=== PATIENT | male | born 1975 | race Caucasian/White ===

== ENCOUNTER 2020-01-09 21:58 | Inpatient (IN) | payer BC ==
[~2020-01-09] VITALS: Ht 177.8 cm; Wt 133.8 kg
[2020-01-09 21:59] VITALS: BP 152/97
[2020-01-09 23:09] LABS: ABSOLUTE NEUTROPHILS 4.1 thou/uL (1.4-8.2); BASOPHILS 0.8 % (0.0-2.0); EOSINOPHILS 3.7 % (0.0-3.0); HEMATOCRIT 43.7 % (42.0-52.0); HEMOGLOBIN 14.5 gm/dL (14.0-18.0); LYMPHOCYTES 27.1 % (24.0-44.0); MCH 29.6 pg (26.0-34.0); MCHC 33.1 g/dL (28.0-37.0); MCV 89.4 fL (80.0-100.0); MONOCYTES 10.3 % (1.0-8.0); PLATELET COUNT 228 thou/uL (150-400); POLYS 58.1 % (36.0-66.0); RBC 4.89 mil/uL (4.50-6.00); RDW 13.5 % (10.5-14.5)
[2020-01-09 23:22] LABS: CALCIUM 9.5 mg/dL (8.5-10.1); CREATININE 1.1 mg/dL (0.7-1.3); POTASSIUM 3.7 mmol/L (3.5-5.1)
[2020-01-09 23:38] LABS: TROPONIN-I 1.73 ng/mL (<0.06)
[2020-01-10] VITALS (15 sets, daily range): BP systolic 104–151; BP diastolic 56–93
[2020-01-10 01:55] LABS: PROTIME 10.3 Seconds (9.3-11.4)
[2020-01-10] MEDS ORDERED: LEVO-T50 MCG PO (04:00)
[2020-01-10] MEDS ORDERED: SINGULAIR 10 MG10 M1 PO (04:01)
[2020-01-10] MEDS ORDERED: FENOFIBRATE150 MG PO (04:02)
[2020-01-10] MEDS ORDERED: COZAAR 25 MG TA25 M2 PO (04:02)
[2020-01-10] MEDS ORDERED: CLARITIN-D 241 EAC1 PO (04:02)
[2020-01-10] MEDS ORDERED: PRAVASTATIN SOD20 MG PO (04:03)
[2020-01-10] MEDS ORDERED: PROAIR HFA8.5 GM INH (04:04)
[2020-01-10] MEDS ORDERED: SYMBICORT160 MCG/4. INH (04:04)
[2020-01-10 08:10] LABS: CHOLESTEROL 180 mg/dL (<200); HDL CHOLESTEROL 31 mg/dL (>40); LDL CHOLESTEROL 91 mg/dL (<100); TC:HDL 5.8 Ratio (Not establshd); TRIGLYCERIDE 293 mg/dL (<150); VLDL 59 mg/dL (<40)
[2020-01-10 08:11] LABS: TROPONIN-I 5.35 ng/mL (<0.06)
--- NOTE | 2020-01-10 12:51 | 2DMMODE ---
[facility] [place] [address] 2 D/M-MODE ECHOCARDIOGRAM Name: JONATHAN GARCIA Room #: 208-P ADM IN M.R.#: [id number] Admission: 01/10/20 Attend Phys: Chris Angeles MD Discharge: Date of : 73 Report #: [id number] THIS REPORT FOR: cc: [facility] - Clinic physician unknown [facility] - Clinic physician unknown Oscar Orellana MD ~ APPROVED REPORT Study performed: 01/10/2020 10:35:32 EXAM: Comprehensive 2D, Doppler, and color-flow Echocardiogram Patient Location: Bedside Room #: 208 Status: on-call BSA: 2.41 HR: 82 bpm BP: 131/93 mmHg Rhythm: NSR Other Information Study Quality: Adequate Risk Factors: Cardiac Risk Factors: Tobacco, HTN, Hyperlipidemia Indications Non STEMI Dyspnea Chest Pain 2D Dimensions IVSd: 10.07 (7-11mm) LVOT Diam: 20.00 (18-24mm) LVDd: 52.40 mm PWd: 10.46 (7-11mm) Ascending Ao: 31.36 (22-36mm) LVDs: 41.96 (25-40mm) LV Single Plane 4CH: 46.77 % LV Single Plane 2CH: 38.30 % Biplane EF: 42.6 % Volumes Left Atrial Volume (Systole) Single Plane 4CH: 49.02 mL Single Plane 2CH: 58.57 mL LA ESV Index: 24.00 mL/m2 [facility] [address] [place] [address] 2 D/M-MODE ECHOCARDIOGRAM Name: JOSEAIDENYUKITIFFANIE MELTON Room #: 208-P ADM IN M.R.#: [id number] Admission: 01/10/20 Attend Phys: Chris Angeles MD Discharge: Date of : 73 Report #: [id number] Aortic Valve AoV Peak Mitchell.: 1.28 m/s AO Peak Gr.: 6.54 mmHg LVOT Max P.24 mmHg LVOT Max V: 1.03 m/s JEFRY Vmax: 2.55 cm2 Mitral Valve E/A Ratio: 1.9 MV Decel. Time: 188.73 ms MV E Max Mitchell.: 0.97 m/s MV A Mitchell.: 0.50 m/s MV PHT: 54.73 ms IVRT: 58.82 ms TDI E/Lateral E': 10.78 E/Medial E': 12.13 Medial E' Mitchell.: 0.08 m/s Lateral E' Mitchell.: 0.09 m/s Pulmonary Valve PV Peak Mitchell.: 0.94 m/s PV Peak Gr.: 3.53 mmHg Pulmonary Vein P Vein S: 0.73 m/s P Vein A: 0.23 m/s P Vein D: 0.51 m/s P Vein A Dur.: 103.8 msec P Vein S/D Ratio: 1.43 Left Ventricle The left ventricle is normal size. Mid to distal anteroseptal and apical hypokinesis. There is normal left ventricular wall thickness. Left ventricular systolic function is mild to moderately decreased. LVEF is 40-45%. Right Ventricle The right ventricle is normal size. The right ventricular systolic function is normal. Atria The left atrium size is normal. The right atrium size is normal. Aortic Valve The aortic valve is normal in structure. No aortic regurgitation is present. There is no aortic valvular stenosis. Mitral Valve [facility] [address] [place] [address] 2 D/M-MODE ECHOCARDIOGRAM Name: JONATHAN GARCIA Room #: 208-P ADM IN M.R.#: [id number] Admission: 01/10/20 Attend Phys: Chris Angeles MD Discharge: Date of : 73 Report #: [id number] The mitral valve is normal in structure. There is no mitral valve regurgitation noted. No evidence of mitral valve stenosis. Tricuspid Valve The tricuspid valve is normal in structure. There is no tricuspid valve regurgitation noted. Pulmonic Valve The pulmonary valve is normal in structure. There is no pulmonic valvular regurgitation. Great Vessels The aortic root is normal in size. The ascending aorta is normal in size. IVC is normal in size and collapses >50% with inspiration. Pericardium There is no pericardial effusion. <Conclusion> The left ventricle is normal size. There is normal left ventricular wall thickness. Left ventricular systolic function is mild to moderately decreased. LVEF is 40-45%. The right ventricle is normal size. The left atrium size is normal. The aortic valve is normal in structure. There is no mitral valve regurgitation noted. There is no tricuspid valve regurgitation noted. <ELECTRONICALLY SIGNED> By: Oscar Orellana MD 01/10/20 1250 1250 1250 Oscar Orellana MD /INF
--- NOTE | 2020-01-10 12:54 | EKG ---
[facility] [place] [address] ELECTROCARDIOGRAM REPORT Name: JONATHAN GARCIA Room #: 208-P ADM IN M.R.#: [id number] Admission: 01/10/20 Attend Phys: hCris Angeles MD Discharge: Date of : 73 Report #: [id number] THIS REPORT FOR: cc: [facility] - Clinic physician unknown [facility] - Clinic physician unknown Oscar Orellana MD ~ THIS REPORT FOR: //name// [facility] Test Date: 2020-01-10 Test Time: 07:46:27 Pat Name: JONATHAN GARCIA Department: Room: 208 Gender: M Permaculture Contractor: Soo DAN : 1975 Requested By: Tamika Nava Order Number: [id number] MD: Oscar Orellana Measurements Intervals [place] Rate: 79 P: 39 [place]: 164 QRS: 64 QRSD: 101 T: 88 QT: 369 QTc: 424 Interpretive Statements Sinus rhythm Anteroseptal infarct, old Nonspecific T abnormalities, lateral leads No previous ECG available for comparison Electronically Signed On 01-10-2020 12:53:43 TRACK SURFACING MACHINE OPERATOR by Oscar Orellana [email or web address] <ELECTRONICALLY SIGNED> By: Oscar Orellana MD 01/10/20 1253 5 5 Oscar Orellana MD /CAR
--- NOTE | 2020-01-10 12:54 | EKG ---
[facility] [place] [address] ELECTROCARDIOGRAM REPORT Name: JONATHAN GARCIA Room #: 208-P ADM IN M.R.#: [id number] Admission: 01/10/20 Attend Phys: Chris Angeles MD Discharge: Date of : 73 Report #: [id number] THIS REPORT FOR: cc: [facility] - Clinic physician unknown [facility] - Clinic physician unknown Oscar Orellana MD ~ THIS REPORT FOR: //name// [facility] ED Test Date: 2020-01-09 Test Time: 22:07:12 Pat Name: HUDSON GARCIA Department: Patient ID: [id number]- Room: Gender: M Manager Floor: BRENNEN : 1975 Requested By: Melissa Junior Order Number: [id number] MD: Oscar Orellana Measurements Intervals [place] Rate: 91 P: 22 [place]: 161 QRS: 64 QRSD: 102 T: -11 QT: 376 QTc: 463 Interpretive Statements Sinus rhythm Anterior infarct, old Borderline ST depression, diffuse leads No previous ECG available for comparison Electronically Signed On 01-10-2020 12:52:58 SUPERVISOR [employer]ODUCTS by Oscar Orellana [email or web address] <ELECTRONICALLY SIGNED> By: Oscar Orellana MD 01/10/20 1252 D: [id number] Oscar Orellana MD /CAR
--- NOTE | 2020-01-10 19:54 | NUR ---
RECEIVED PT'S CARE AROUND 0740; PT. A0X4; NO C/O PAIN; TROPONIN ELEVATED; CARDIOLOGY NOTIFIED; DURING AM ASSESSMENT NO C/O CP; REMAINED OF NPO; AROUND 0900 C/O SOME BACK PAIN; 12/22; DR. WIL KAYE; PT. GONE TO CARDIAC AROUND 1000; BACK AROUND NOON; R. SIDE C/D/I; NO HEMATOMA; EDUCATED ABOUT POST CARDIAC REST & PREVENTIONS; ST. UNDERSTANDING; THROUGH THE AFTERNOON NO HEMATOMA; SR ON THE MONITOR; ASSESSMENT CHARGED; FOLLOWING POC; PASSED ON REPORT;
--- NOTE | 2020-01-11 02:24 | NUR ---
ASSUMED CARE OF PT FROM DAY SHIFT, RIGHT GROIN SOFT AND FREE OF BLEEDING GOOD STRONG PULSE NOTED, DENIES CHEST PAIN , PT UP TO BATHROOM TOLERATED WELL. BOX LUNCH REQUEST AND GIVEN , TOLERATED WELL. FLUIDS COMPLETED AND SALINE LOCKED.CLINICAL LAB SPECIALIST SHOWS NSR. PT RESTED WELL THROUGHOUT HOURLY ROUNDS, WILL REORT CHANGS OR ABNORMAL FINDINGS.
[2020-01-11 04:24] LABS: HEMATOCRIT 40.5 % (42.0-52.0); HEMOGLOBIN 13.3 gm/dL (14.0-18.0); MCH 29.7 pg (26.0-34.0); MCHC 32.7 g/dL (28.0-37.0); MCV 90.7 fL (80.0-100.0); RBC 4.46 mil/uL (4.50-6.00); RDW 13.8 % (10.5-14.5)
[2020-01-11 04:46] LABS: ALBUMIN 3.3 g/dL (3.4-5.0); CALCIUM 8.3 mg/dL (8.5-10.1); CREATININE 0.8 mg/dL (0.7-1.3); POTASSIUM 3.8 mmol/L (3.5-5.1); TOTAL BILIRUBIN 0.4 mg/dL (<0.1-1.0); TOTAL PROTEIN 6.8 g/dL (6.4-8.2)
[2020-01-11 06:30] LABS: GLYCOHEMOGLOBIN (HGB A1C) 5.7 % (4.8-5.6)
[2020-01-11 08:05] VITALS: BP 131/84
--- NOTE | 2020-01-11 08:38 | HC ---
[facility] [place] [address] CONSULTATION Name: JONATHAN GARCIA Room #: 208-P ADM IN M.R.#: [id number] Admission: 01/10/20 Attend Phys: Chris Angeles MD Discharge: Date of : 73 Report #: [id number] THIS REPORT FOR: cc: [facility] - Clinic physician unknown [facility] - Clinic physician unknown Oscar Orellana MD ~ CC: [facility] unknown Chris Angeles DATE OF SERVICE: 01/10/2020 CARDIOLOGY CONSULTATION INDICATION: Chest pain. HISTORY OF PRESENT ILLNESS: This is a 44-year-old gentleman with a history of hypertension, hypercholesterolemia, tobacco use and strong family history for CAD, presenting with chest pain and shortness of breath. For the past few months, he has been having back pains, managed by a chiropractor. For the past week, he has noticed a development of shortness of breath with walking up a flight of stairs in his home. He denies any fever, chills or cough. Last night, after putting his kids to bed, he developed chest pain. It was associated with shortness of breath, but denies any diaphoresis. The whole episode lasted for 15 minutes. His initial troponin was minimally elevated, the peak is 5.35. A CT angio was negative for PE. He has remained stable on IV heparin. There is no history of PND or orthopnea. PAST MEDICAL HISTORY: Hypertension, hypercholesterolemia ALLERGIES: PENICILLIN. MEDICATIONS: At home include pravastatin, fenofibrate, and losartan. SOCIAL HISTORY: Uses chewing tobacco on a daily basis. FAMILY HISTORY: Father with a history of an [place]. REVIEW OF SYSTEMS: A full 10-point review of systems performed. Only the pertinent positives and negatives are described in the HPI. PHYSICAL EXAMINATION: VITAL SIGNS: Blood pressure is 130/70, heart rate is 90 beats per minute. GENERAL APPEARANCE: An overweight male, in no acute distress. HEENT: Normocephalic, atraumatic. Oral mucosa moist. NECK: Supple, no JVD. LUNGS: Clear to auscultation. [facility] [address] [place] [address] CONSULTATION Name: JOSEJONATHAN GERONIMO Room #: 208- ADM IN M.R.#: [id number] Admission: 01/10/20 Attend Phys: Chris Angeles MD Discharge: Date of : 73 Report #: [id number] CARDIAC: Regular rate and rhythm, S1, S2 positive. ABDOMEN: Soft, nontender. EXTREMITIES: No cyanosis, trace edema. NEUROLOGIC: Alert and oriented x 3. ECG on presentation reveals sinus rhythm with ST segment abnormalities in the inferolateral leads. T-wave in V2. LABORATORY VALUES: Peak troponin is 5.35. White count 7.0, hemoglobin 14.5, creatinine is 1.1. ASSESSMENT AND PLAN: 1. Non-ST elevation myocardial infarction. Given his recent symptoms and laboratory findings, I discussed with the patient the pros and cons of a cardiac catheterization. The patient and his voiced understanding, wishes to proceed. 2. Hypertension, continue with losartan, add a beta ricco. 3. Hypercholesterolemia, transitioned to Lipitor for high-dose statin therapy. 4. Tobacco use, complete cessation of all tobacco products has been highly recommended. <ELECTRONICALLY SIGNED> By: Oscar Orellana MD 01/11/20 0838 1049 1108 Oscar Orellana MD /nt
--- NOTE | 2020-01-11 10:03 | EKG ---
[facility] [place] [address] ELECTROCARDIOGRAM REPORT Name: JONATHAN GARCIA Room #: 208-P ADM IN M.R.#: [id number] Admission: 01/10/20 Attend Phys: Chris Angeles MD Discharge: Date of : 73 Report #: [id number] THIS REPORT FOR: cc: [facility] - Clinic physician unknown [facility] - Clinic physician unknown Oscar Orellana MD ~ THIS REPORT FOR: //name// [facility] Test Date: 2020-01-10 Test Time: 12:59:38 Pat Name: JONATHAN GARCIA Department: Room: 208 P Gender: M Recruitment Coordinator: Soo DAN : 1975 Requested By: Oscar Orellana Order Number: [id number] MD: Oscar Orellana Measurements Intervals [place] Rate: 78 P: 44 [place]: 167 QRS: 71 QRSD: 103 T: 103 QT: 364 QTc: 415 Interpretive Statements Sinus rhythm Anteroseptal infarct, old Nonspecific T abnormalities, lateral leads Compared to ECG 01/10/2020 07:46:27 No significant changes Electronically Signed On 01-11-2020 10:02:40 CONTINUOUS IMPROVEMENT COORDINATOR by Oscar Orellana [email or web address] <ELECTRONICALLY SIGNED> By: Oscar Orellana MD 01/11/20 1002 1259 1259 Oscar Orellana MD /EPI
--- NOTE | 2020-01-11 10:19 | CATHLAB ---
[facility] [place] [address] INVASIVE PROCEDURE REPORT Name: JONATHAN GARCIA Room #: 208-P ADM IN M.R.#: [id number] Admission: 01/10/20 Attend Phys: Chris Angeles MD Discharge: Date of : 73 Report #: [id number] THIS REPORT FOR: cc: [facility] - Clinic physician unknown [facility] - Clinic physician unknown Oscar Orellana MD ~ APPROVED REPORT Study performed: 01/10/2020 11:05:13 Patient Details Patient Status: In-Patient Room #: The patient is a 44 year-old male Event Personnel Oscar Orellana Marine Surveyor, Ayan Cedillo RN, Rebekah Larsen Sandifer, David Monitor Procedures Performed Left Heart Cath w/or w/o Coronaries [id number] [facility] Place w/wo Plasty Single LAD [id number] Indication Non-STEMI , Dyspnea, Chest pain Risk Factors Obesity, Family History, Hypercholesterolemia, Hypertension, Tobacco History () Procedure Narrative The Right Groin^ was infiltrated with 1% Lidocaine subcutaneous anesthesia. A PINNACLE 6FR Sheath #[id number] sheath was inserted into the RFA^. Coronary angiography was performed using coronary diagnostic catheters. The right coronary system was accessed and visualized with a JR4 catheter. The left coronary system was accessed and visualized with a JL4 catheter. The left ventricle was accessed and visualized with a PIGTAIL catheter. Left ventricular/Aortic Valve gradient assessed via catheter pullback. Left ventriculogram was performed in 30 degree projection. Closure device was deployed with a 6 Fr MYNXGRIP 6/7F #[id number]. The patient tolerated the procedure well and there were no complications associated with the procedure. There was no hematoma. Intraoperative Conscious Sedation [facility] [address] [place] [address] INVASIVE PROCEDURE REPORT Name: JOSEJONATHAN MELTON Room #: 208-P [facility] IN .R.#: [id number] Admission: 01/10/20 Attend Phys: Chris Angeles MD Discharge: Date of : 73 Report #: [id number] Sedation start time: 11.33 Case end Time: 12.39 Fentanyl 100 mcg Versed 2 mg Fluoro Time: 14.16 minutes Dose: DAP 52591.00 cGycm2 2692 mGy Contrast Type and Amount: Omnipaque 260 ml Coronary Angiography The patient's coronary anatomy is right dominant. Diagnostic Cath Left Main The left main artery is a large caliber vessel, patent with no flow-limiting lesions. LAD There is a severe stenosis in the proximal LAD, at the bifurcation of the first diagonal artery, 95-99%. Diagonal 1 This is a small to moderate size caliber vessel with a severe ostial stenosis, greater than 95%. Circumflex This is a moderate size caliber vessel, supplies one moderate size OM vessel. OM1 This is a moderate size caliber vessel, patent with no flow-limiting lesions. Right Coronary This is a dominant vessel with mild disease in the proximal segment, 20%. R PDA This is a moderate size caliber vessel, patent with no flow-limiting lesions. RPLV This is a moderate size caliber vessel, patent with no flow-limiting lesions. Left Ventriculography The left ventricle is mildly dilated in size with decreased contractility. The left ventricular ejection fraction is estimated to be 40%. There is hypokinesis of the anterolateral and apical segments. Hemodynamics The aortic pressure is 154/93 mmHg with a mean of 86 mmHg. The left ventricular pressure is 157/17 mmHg with a mean of mmHg. The left ventricular end diastolic pressure is 32 mmHg. There was no gradient across the aortic valve upon pullback. Pullback from the left ventricle to the aorta revealed no gradient across the aortic valve. PCI Technique Lesion Percutaneous coronary intervention was performed on the proximal left anterior descending artery segment. The lesion stenosis prior to [facility] [address] [place] [address] INVASIVE PROCEDURE REPORT Name: JONATHAN GARCIA Room #: 208-P [facility] IN [facility]#: [id number] Admission: 01/10/20 Attend Phys: Chris Angeles MD Discharge: Date of : 73 Report #: [id number] intervention was 99% with RASHIDA 2 flow. A VISTA 6FR XB 3.5 #[id number] Guide Catheter was used to engage the ostium. A Justice Wire .014 x 182CM #[id number] Interventional Guidewire was used to cross the lesion. BALLOON DILATION A Balloon catheter Euphora RX 2.5 x 10 #[id number] was inserted and inflated up to 8.00atm for 18seconds. STENT DEPLOYMENT A drug-eluting stent RESOLUTE DILEEP RX 3.0 X 15 #[id number] was inserted and inflated up to 14.00atm for 22seconds. POST STENT DEPLOYMENT BALLOON DILATION A Balloon catheter TREK NC RX 3.25 X 8 #[id number] was inserted and inflated up to 16.00atm for 18seconds. Additional Inflation: 16.00atm for 13seconds. Final angiography reveals 0 % stenosis with RASHIDA 3 flow. PCI Technique Lesion 2 Percutaneous Coronary Intervention was performed on the first diagnonal branch segment. The lesion stenosis prior to intervention was 99% with RASHIDA 2 flow. A KVK TEAM 6FR XB 3.5 #[id number] Guide Catheter was used to engage the ostium. A QM Power 014 FLEX Interventional Guidewire was used to cross the lesion. Balloon Dilation A Balloon catheter Euphora RX 2.5 x 10 #[id number] was inserted and inflated up to 4.00atm for 9seconds. Additional Inflation: 10.00atm for 20seconds. Final angiography reveals 20 % stenosis with RASHIDA 3 flow. Conclusion 1. Successful insertion of a drug-eluting stent into the proximal LAD stenosis. 2. Successful balloon angioplasty of the ostial stenosis in the first diagonal artery. 3. Right dominant system. 4. Moderate segmental LV dysfunction. [facility] [address] [place] [address] INVASIVE PROCEDURE REPORT Name: JONATHAN GARCIA Room #: 208-P ADM IN M.R.#: [id number] Admission: 01/10/20 Attend Phys: Chris Angeles MD Discharge: Date of : 73 Report #: [id number] 5. Recommend dual antiplatelet therapy and aggressive risk factor management. <ELECTRONICALLY SIGNED> By: Oscar Orellana MD 01/11/207 16 16 Oscar Orellana MD /INF
[2020-01-11 11:50] VITALS: BP 145/66
[2020-01-11 12:00] VITALS: BP 134/85
--- NOTE | 2020-01-11 13:15 | EKG ---
[facility] [place] [address] ELECTROCARDIOGRAM REPORT Name: JOSEKIMTIFFANIE GERONIMO Room #: 208-P ADM IN M.R.#: [id number] Admission: 01/10/20 Attend Phys: Chris Angeles MD Discharge: Date of : 73 Report #: [id number] THIS REPORT FOR: cc: [facility] - Clinic physician unknown [facility] - Clinic physician unknown Herman Mackenzie MD ~ THIS REPORT FOR: //name// [facility] Test Date: 2020-01-11 Test Time: 07:14:46 Pat Name: JONATHAN GARCIA Department: Room: 208 P Gender: M Sugarcane Research Technician: MEHUL : 1975 Requested By: Oscar Orellana Order Number: [id number] MD: Herman Mackenzie Measurements Intervals [place] Rate: 78 P: 44 [place]: 154 QRS: 72 QRSD: 117 T: 130 QT: 399 QTc: 455 Interpretive Statements Sinus rhythm Nonspecific intraventricular conduction delay Anteroseptal infarct, old Abnormal T, consider ischemia, lateral leads Compared to ECG 01/10/2020 12:59:38 Intraventricular conduction delay now present Possible ischemia now present Myocardial infarct finding still present T-wave abnormality still present Electronically Signed On 01-11-2020 13:14:39 INSIDE SALES MANAGER by Herman Mackenzie [email or web address] <ELECTRONICALLY SIGNED> By: Herman Mackenzie MD 01/11/20 1314 3 3 Herman Mackenzie MD /EPI
--- NOTE | 2020-01-11 16:01 | NUR ---
ASSUMED CARE 0700, ALERT X4, FROM HOME WITH AND CHILDREN, DENIES SOB, DENIES CHEST PAIN, RIGHT GROIN SITE C/D/I. REVIEWED POST HEART CATH STENT CARE. PT WALKING HALLS TOLERATED. NSR ON TELE. PLANS TO DC TOMORROW. CONTINUE TO MONITOR
[2020-01-11 16:30] VITALS: BP 133/84
[2020-01-11 20:26] VITALS: BP 143/81
--- NOTE | 2020-01-12 02:48 | NUR ---
ASSUMED CARE OF PATIENT AT 1900. VSS, AFEBRILE. UP AD JAYME IN ROOM. EDUCATION GIVEN ABOUT SMOKING CESSATION, DIET AND WEIGHT LOSS. ENCOURAGED TO REDUCE DRINKING WELL. STATES HE DRINKS 6-8 BEERS A NIGHT. PLANS FOR DISCHARGE IN AM. PROGRESSING WELL TOWARDS POC GOALS.
[2020-01-12 05:30] VITALS: BP 100/63
[2020-01-12] MEDS ORDERED: ATORVASTATIN CA80 MG PO (07:49)
[2020-01-12] MEDS ORDERED: METOPROLOL SUCC25 M1 PO (07:50)
[2020-01-12] MEDS ORDERED: ASPIR 8181 MG PO (07:50)
[2020-01-12] MEDS ORDERED: EFFIENT10 MG PO (07:51)
[2020-01-12 08:15] VITALS: BP 127/74
[2020-01-12 09:55] VITALS: BP 127/74
[2020-01-12 09:58] VITALS: BP 127/74
== END 2020-01-12 10:10 | disposition home or self-care (01) | DRG 247 ==
LOC: ER 21:58 → EROBS 01-10 01:41 → 2N 01-10 04:41
PROVIDERS: Emergency Medicine Emergency Medical Services; Internal Medicine Cardiovascular Disease; Nurse Practitioner Family; Physician Assistant; ADMIT Internal Medicine
PROC: 4A023N7 Measurement of Cardiac Sampling and Pressure, Left Heart, Percutaneous Approach (ICD-10-PCS; principal; 2020-01-10)
PROC: B2111ZZ Fluoroscopy of Multiple Coronary Arteries using Low Osmolar Contrast (ICD-10-PCS; principal; 2020-01-10)
PROC: B2151ZZ Fluoroscopy of Left Heart using Low Osmolar Contrast (ICD-10-PCS; principal; 2020-01-10)
PROC: 027034Z Dilation of Coronary Artery, One Artery with Drug-eluting Intraluminal Device, Percutaneous Approach (ICD-10-PCS; principal; 2020-01-10)
DX: I21.4 Non-ST elevation (NSTEMI) myocardial infarction (principal); J45.909 Unspecified asthma, uncomplicated; E03.9 Hypothyroidism, unspecified; E78.00 Pure hypercholesterolemia, unspecified; I10 Essential (primary) hypertension; F17.220 Nicotine dependence, chewing tobacco, uncomplicated; E78.5 Hyperlipidemia, unspecified; I25.5 Ischemic cardiomyopathy; Z88.0 Allergy status to penicillin; Z82.49 Family history of ischemic heart disease and other diseases of the circulatory system; Z71.6 Tobacco abuse counseling
CPT/HCPCS: 10081

== ENCOUNTER → 2020-08-11 | Outpatient (CLI) | payer BC, OTHER ==
[~2020-08-11] MED LIST: ASPIR 8181 MG PO; ATORVASTATIN CA80 MG PO; CLARITIN-D 241 EAC1 PO; COZAAR 25 MG TA25 M2 PO; EFFIENT10 MG PO; FENOFIBRATE150 MG PO; LEVO-T50 MCG PO; METOPROLOL SUCC25 M1 PO; PRAVASTATIN SOD20 MG PO; PROAIR HFA8.5 GM INH; SINGULAIR 10 MG10 M1 PO; SYMBICORT160 MCG/4. INH
== END ==
LOC: SJCVCIMAG 08-09 09:07
PROVIDERS: ATTEND Internal Medicine Cardiovascular Disease
DX: I08.1 Rheumatic disorders of both mitral and tricuspid valves (principal); I25.119 Atherosclerotic heart disease of native coronary artery with unspecified angina pectoris; I25.5 Ischemic cardiomyopathy; I10 Essential (primary) hypertension

== ENCOUNTER → 2021-02-08 | Outpatient (CLI) | payer BC, OTHER | LOC: SJCVCIMAG 08:01 | PROVIDERS: ATTEND Internal Medicine Cardiovascular Disease | DX: R00.0 Tachycardia, unspecified (principal); R06.00 Dyspnea, unspecified; I10 Essential (primary) hypertension; I25.5 Ischemic cardiomyopathy; E78.5 Hyperlipidemia, unspecified; I25.10 Atherosclerotic heart disease of native coronary artery without angina pectoris; I25.2 Old myocardial infarction; Z87.891 Personal history of nicotine dependence; Z79.82 Long term (current) use of aspirin; Z79.899 Other long term (current) drug therapy; Z88.0 Allergy status to penicillin ==